=== PATIENT | female | born 1975 | race African-American/Black ===

== ENCOUNTER 2016-10-30 09:41 | Emergency (ER) | payer SELFPAY ==
[2016-10-30] MEDS ORDERED: Lorazepam 2 MG/ML VIAL ONE (10:33)
[2016-10-30] MEDS ORDERED: Fentanyl 100 MCG/2 ML VIAL ONE (10:33)
[2016-10-30] MEDS ORDERED: Ketorolac Tromethamine 30 MG/ML VIAL ONE (10:34)
[2016-10-30] MEDS ORDERED: Magnesium Citrate 300 ML BOT ONE (10:34)
--- NOTE | 2016-10-30 13:44 | ERRECORD ---
[facility] EMERGENCY RECORD HPI ABDOMINAL PAIN (23:48 AGRE) CHIEF COMPLAINTS: Patient presents for evaluation of abdominal pain. HISTORIAN: History provided by patient, HAS BEEN HAVING LLQ ABDOMINAL PAIN FOR SEVERAL MONTHS GETTING WORST. SEEN AT [facility] YESTERDAY FOR THIS PAIN AND WAS TOLD SHE HAD A LEAKING OVARIAN CYST AND GIVE AN OB-GARNETT FEEDER PHYSICIAN FOR FOLLOW UP. HOWEVER THE [facility] IS NOT HELPING HER PAIN THAT IS GETTING WORST. LOOKED ON THE INTERNET AND SAW THAT THE CYST CAN RUPTURE AND SHE IS AFRAID THAT WOULD CAUSE SO IS SCARED. LOCATION FEMALE: Symptoms are localized, most severe in the left lower quadrant. QUALITY: Pain is sharp in nature, described as shooting, described as stabbing. SEVERITY: Maximum severity of symptoms severe, Currently symptoms are severe. TIME COURSE: Gradual onset of symptoms, Symptoms are worsening. ASSOCIATED WITH FEMALE: No associated urinary tract infection signs or symptoms, No associated vomiting, No associated vaginal discharge, No associated vaginal bleeding, Denies any other complaints. RELIEVED BY: Patient's condition relieved by nothing. EXACERBATED BY: Patient's condition exacerbated by nothing. ROS (23:51 AGRE) CONSTITUTIONAL: Historian denies chills, denies fever, denies lethargy, denies malaise. EYES: Historian denies eye pain, denies eye redness. ENT: Historian denies rhinorrhea, denies sinus pain, denies sore throat. CARDIOVASCULAR: Historian denies chest pain, denies dyspnea on exertion. RESPIRATORY: Historian denies cough, denies shortness of breath. GI: Historian reports abdominal pain, denies nausea, denies vomiting. MUSCULOSKELETAL: Historian denies back pain, denies neck pain. SKIN: Negative skin review of systems, Historian denies skin changes, denies skin lesions. NEUROLOGIC: Historian denies headache, denies mental status changes. PSYCHIATRIC: Negative psychiatric review of systems, Historian denies anxiety. 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 FEMALE SURGICAL HISTORY: Surgical history of hysterectomy-PARTIAL, STILL HAS OVARIES, history of tubal ligation, myomectomy, breast tumor removed, TUMORS REMOVED FROM STOMACH. PSYCHIATRIC HISTORY: No previous psychiatric history. SOCIAL HISTORY: Patient has no smoking history, Patient denies alcohol use, Patient denies drug use. &a-1R&a+25V*p+0X*r5508P*c202B*c15G*c2P*p-0X&a-25V&a+1R Name: Carmela Avilez : 1975 F41 MedRec: [id number] AcctNum: [id number] Prepared: SunOct 31, 2016 00:05 by Interface Page 1 of 4 pMD [facility] EMERGENCY RECORD KNOWN ALLERGIES No Known Drug Allergies CURRENT MEDICATIONS [place]: TABLET : Strength - 10 mg-325 mg : ORAL Patient Dose: Oral As Needed. (09:53 MSPE) Tylenol-Codeine #3: TABLET : Strength - 300 mg-30 mg : ORAL Patient Dose: As Needed. (09:53 MSPE) Ultram: TABLET : Strength - 50 mg : ORAL Patient Dose: As Needed. (09:53 MSPE) Zofran ODT: TABLET,DISINTEGRATING : Strength - 4 mg : ORAL Patient Dose: As Needed. (09:54 MSPE) VITAL SIGNS VITAL SIGNS: BP: 127/80, Pulse: 97, Resp: 24, Temp: 98.6 (Oral), Pain: 10, O2 sat: 97 on Room Air, Time: 10/30/2016 09:48. (09:48 MSPE) BP: 112/75, Pulse: 83, Resp: 20, Pain: 3, O2 sat: 99 on Room Air, Time: 10/30/2016 11:00. (11:00 MSPE) PHYSICAL EXAM (23:51 AGRE) CONSTITUTIONAL: Patient appears, in severe pain distress, WRITHING, MOANING, RESTLESS, HYPERVENTILATING WITH PAIN, Vital Signs Reviewed, Patient afebrile, Patient appears non toxic, Patient alert and oriented to person, place and time, Nursing notes reviewed. HEAD: Head exam included findings of head atraumatic, normocephalic. EYES: Eye exam included findings of eyelids normal to inspection, Extraocular muscles intact, Conjunctiva normal, Sclera normal. ENT: Ear exam normal, Nose exam normal, Mouth exam normal. NECK: Neck exam normal, Neck exam included findings of normal range of motion, no meningeal signs. RESPIRATORY CHEST: Respiratory and chest exam normal, Respiratory exam included findings of no respiratory distress, Breath sounds clear, No wheezing, No rales, No rhonchi, Breath sounds not diminished. CARDIOVASCULAR: Cardiovascular assessment normal, Cardiovascular exam included findings of heart rate regular rate and rhythm, Heart sounds normal, normal S1, normal S2, no murmurs, no rub, no gallop. ABDOMEN FEMALE: Abdominal exam included findings of abdomen tender, to the left lower quadrant, moderate intensity, Bowel sounds normal, Liver normal, Spleen normal, no distension, no mass, no pulsatile masses, no peritoneal signs, no rigidity, no guarding, no rebound, no inguinal hernia, no femoral hernia, no umbilical hernia. &a-1R&a+25V*p+0X*[id number]*c202B*c15G*c2P*p-0X&a-25V&a+1R Name: Carmela Avilez : 1975 F41 MedRec: [id number] AcctNum: [id number] Prepared: yamile Oct 31, 2016 00:05 by Interface Page 2 of 4 pMD [facility] EMERGENCY RECORD BACK: Back exam included findings of normal inspection, range of motion normal. UPPER EXTREMITY: Upper extremity exam included findings of inspection normal, Range of motion normal. LOWER EXTREMITY: Lower extremity exam included findings of inspection normal, Range of motion normal. NEURO: Neuro exam normal, Neuro exam findings include patient oriented to person, place and time, Speech normal, Memory normal, Cranial nerves intact, no focal motor deficits. SKIN: Skin exam included findings of skin warm, dry, and normal in color. PSYCHIATRIC: Psychiatric exam normal, Psychiatric exam included findings of patient oriented to person place and time, Normal affect, OBVIOUS VERY ANXIOUS AND CRYING AND SEEMS TERRIFIED THAT SHE IS GOING TO IMMEDIATELY. MEDICATION ADMINISTRATION SUMMARY Drug Name: magnesium citrate oral solution, Dose Ordered: 300 mL, Route: Oral, Status: Given, Time: 11:02 10/30/2016, Drug Name: LORazepam injection, Dose Ordered: 1 mg, Route: IV Push, Status: Given, Time: 10:57 10/30/2016, Drug Name: fentaNYL (PF) injection, Dose Ordered: 100 mcg, Route: IV Push, Status: Given, Time: 10:50 10/30/2016, Drug Name: ketorolac injection, Dose Ordered: 30 mg, Route: IV Push, Status: Given, Time: 10:46 10/30/2016, Detailed record available in Medication Service section. DOCTOR NOTES (11:07 AGRE) RE-EVALUATION: Routine re-evaluation, after administration of analgesics, The patient's condition has improved. TEXT: DISCUSSED WITH HER THE RESULTS OF HER PREVIOUS ED WORK UP AND WHAT TO EXPECT FROM AN OVARIAN CYST AND THAT IF IT RUPTURES THAT IS USUALLY NOT FATAL. SHE THEN STARTED TO RELAX AND CALM DOWN AND SAID HER COUSIN WHO IS A NURSE TOLD HER TO GET BACK TO THE ED IMMEDIATELY BECAUSE IF IT RUPTURES SHE WILL AND ON THE INTERNET IT SAID THAT A RUPTURED OVARIAN CYST IS VERY SERIOUS. SINCE IT IS LEAKING SHE IS AFRAID THAT IT WILL RUPTURE AND KILL HER. HOWEVER AFTER EXTENSIVE CONVERSATION ABOUT OVARIAN CYST SHE STARTED RELAXING, STOPPED HYPERVENTILATING, AND STOPPED ROCKING AND WRITHING IN PAIN. SHE WAS THEN GIVEN AN INJECTION OF FENTANYL, TORADOL AND ATIVAN AND BECAME COMFORTABLE AND WENT TO SLEEP. DISCUSSED WITH HER FINDINGS ON EXAM TODAY, WHAT TO EXPECT FROM OVARIAN CYST, NEED FOR FOLLOW UP WITH MANAGER ADMINISTRATION ROYA BUT REASSURED HER THAT SHE IS NOT IN DANGER OF NEEDING IMMEDIATELY SURGERY TODAY. SHE WAS SMILING AND SAYING SHE WAS AFRAID WHEN SHE CAME IN BECAUSE THEY HAD SENT HER HOME FROM THE ED AND RELATIVES TOLD HER SHE COULD . WE DISCUSSED A PLAN FOR MANAGMENT OF THE PAIN AND THAT SHE NEEDS TO F/U WITH MANAGER ADMINISTRATION. SHE MADE APPOINTMENT FROM ED. ALSO SAYS SHE HAS BEEN CONSTIPATED FOR 1 WEEK. WE DISCUSSED THE CAUSE WHICH IS MOST LIKELY &a-1R&a+25V*p+0X*i5555F*c202B*c15G*c2P*p-0X&a-25V&a+1R Name: Carmela Avilez : 1975 F41 MedRec: [id number] AcctNum: [id number] Prepared: Pee Oct 31, 2016 00:05 by Interface Page 3 of 4 pMD [facility] EMERGENCY RECORD THE PAIN MEDS SHE IS TAKING. DISCUSSED HOW TO MANAGE HER CONSTIPATION, MANAGEMENT OF HER PAIN, NEED FOR FOLLOW UP. SHE EXPRESSED UNDERSTANDING AND AGREEMENT. PATIENT STATUS: Patient has improved since arrival to emergency department. PATIENT PLAN: The patient will be discharged. DATA REVIEWED: Old records obtained, Old records reviewed, Discussed with family. PROBLEM LIST No recorded problems DIAGNOSIS (10:50 AGRE) FINAL: PRIMARY: Pelvic Pain. PRESCRIPTION No recorded prescriptions DISPOSITION PATIENT: Disposition Type: Discharge, Disposition: *Discharge Home, Condition: Improved. (10:50 AGRE) Patient left the department. (11:51 RICKY) [place]: REJI=MD Haim, Ahmet MSPE=JONATHAN Rangel, Tiffanie &a-1R&a+25V*p+0X*[id number]*c202B*c15G*c2P*p-0X&a-25V&a+1R Name: Carmela Avilez : 1975 F41 MedRec: [id number] AcctNum: [id number] Prepared: Pee Oct 31, 2016 00:05 by Interface Page 4 of 4 pMD MTDD
--- NOTE | 2016-10-30 13:47 | PICIS ---
[facility] EMERGENCY RECORD TRIAGE (SunOct 30, 2016 09:51 MSPE) TRIAGE NOTES: LLQ pain for past one week. Sts dx'd with ovarian cyst. Seen at [facility] yesterday. Pain no better. (SunOct 30, 2016 09:51 MSPE) PATIENT: NAME: Carmela Avilez, AGE: 41, GENDER: female, : [facility] 1975, TIME OF GREET: SunOct 30, 2016 09:41, PREFERRED LANGUAGE: Fijian, ETHNICITY: Not or , ECODE BILLING MAP: [facility], SSN: [id number], Zip Code: [address], KG WEIGHT: 65.77, PHONE: , , , PERSON ID: [id number], PCP: none. (SunOct 30, 2016 09:51 MSPE) COMPLAINT: ABDOMINAL PAIN. (SunOct 30, 2016 09:51 MSPE) ADMISSION: URGENCY: 3 Urgent, ADMISSION SOURCE: Home, TRANSPORT: CAR, BED: ER *TR1. (SunOct 30, 2016 09:51 MSPE) LMP: LMP: Hysterectomy. (09:56 MSPE) TREATMENTS IN PROGRESS: Treatments given Prehospital: Pt sts took [id number] x 3 tabs at 0200. (09:56 MSPE) PROVIDERS: TRIAGE NURSE: Tiffanie Rangel RN. (SunOct 30, 2016 09:51 MSPE) VITAL SIGNS: BP 127/80, Pulse 97, Resp 24, Temp 98.6, (Oral), Pain 10, O2 Sat 97, on Room Air, Time 10/30/2016 09:48. (09:48 MSPE) PREVIOUS VISIT ALLERGIES: No Known Drug Allergies. (SunOct 30, 2016 09:51 MSPE) No Known Drug Allergies. (09:56 MSPE) KNOWN ALLERGIES No Known Drug Allergies CURRENT MEDICATIONS [place]: TABLET : Strength - 10 mg-325 mg : ORAL Patient Dose: Oral As Needed. (09:53 MSPE) Tylenol-Codeine #3: TABLET : Strength - 300 mg-30 mg : ORAL Patient Dose: As Needed. (09:53 MSPE) Ultram: TABLET : Strength - 50 mg : ORAL Patient Dose: As Needed. (09:53 MSPE) Zofran ODT: TABLET,DISINTEGRATING : Strength - 4 mg : ORAL Patient Dose: As Needed. (09:54 MSPE) VITAL SIGNS VITAL SIGNS: BP: 127/80, Pulse: 97, Resp: 24, Temp: 98.6 (Oral), Pain: 10, O2 sat: 97 on Room Air, Time: 10/30/2016 09:48. (09:48 MSPE) BP: 112/75, Pulse: 83, Resp: 20, Pain: 3, O2 sat: 99 on Room Air, Time: 10/30/2016 11:00. (11:00 MSPE) NURSING ASSESSMENT: ABDOMEN (10:00 MSPE) CONSTITUTIONAL: Patient arrives, via hospital wheelchair, History &a-1R&a+25V*p+0X*k3176B*c202B*c15G*c2P*p-0X&a-25V&a+1R Name: Carmela Avilez : 1975 F41 MedRec: [id number] AcctNum: [id number] Prepared: SunOct 31, 2016 00:05 by Interface Page 1 of 7 pMD [facility] EMERGENCY RECORD obtained from patient, Patient appears, anxious, in distress due to pain, Patient cooperative, Patient alert, Oriented to person, place and time, Skin warm, Skin dry. PAIN: miserable pain, to the left lower quadrant, Onset of pain 10/24/2016. ABDOMEN: Notes: c/o severe, constant LLQ abd pain for one week. Sts dx'd with ovarian cyst and is "leaking". Unable to control pain with her meds she rec'd yesterday at [facility] ER. LMP: Last menstrual period not applicable due to hysterectomy history. GENITOURINARY FEMALE: no associated urinary complaints. NURSING PROCEDURE: DISCHARGE NOTE (11:39 MSPE) DISCHARGE: Patient discharged to home, in a wheelchair, family driving, accompanied by //partner, Summary of Care printed/ provided, Discharge instructions given to patient, Simple or moderate discharge teaching performed, Above person(s) verbalized understanding of discharge instructions and follow-up care, Patient treated and evaluated by physician. BELONGINGS: Belongings remain with patient. NURSING PROCEDURE: IV IV SITE 1: IV therapy indicated for medication administration, IV established, to the right hand, using a 22 gauge catheter, in two attempts, IV site prepped with Chloraprep, Saline lock established, Flushed with normal saline (mls): 10. (10:45 MSPE) FOLLOW-UP SITE 1: After procedure, 2x2 dressing applied, IV discontinued, due to patient being discharged, catheter intact. (11:29 MSPE) NURSING PROCEDURE: NURSE NOTES (11:29 MSPE) NURSES NOTES: Notes: Feeling much better; awaiting to return for transport home. MEDICATION ADMINISTRATION SUMMARY Drug Name: magnesium citrate oral solution, Dose Ordered: 300 mL, Route: Oral, Status: Given, Time: 11:02 10/30/2016, Drug Name: LORazepam injection, Dose Ordered: 1 mg, Route: IV Push, Status: Given, Time: 10:57 10/30/2016, Drug Name: fentaNYL (PF) injection, Dose Ordered: 100 mcg, Route: IV Push, Status: Given, Time: 10:50 10/30/2016, Drug Name: ketorolac injection, Dose Ordered: 30 mg, Route: IV Push, Status: Given, Time: 10:46 10/30/2016, Detailed record available in Medication Service section. MEDICATION SERVICE fentaNYL (PF) injection: Order: fentaNYL (PF) injection (fentanyl citrate/preservative free) - Dose: 100 mcg : IV Push &a-1R&a+25V*p+0X*t0821Y*c202B*c15G*c2P*p-0X&a-25V&a+1R Name: Kavon Avilezmaria tvimal Gallardo : 1975 F41 MedRec: [id number] AcctNum: [id number] Prepared: SunOct 31, 2016 00:05 by Interface Page 2 of 7 pMD [facility] EMERGENCY RECORD Ordered by: Ahmet Whitmore MD Entered by: Ahmet Whitmore MD SunOct 30, 2016 10:25 Documented as given by: Tiffanie Rangel RN SunOct 30, 2016 10:50 Patient, Medication, Dose, Route and Time verified prior to administration. Amount given: 100mcg, IV SITE #1 IVP, subsequent different medication, Slowly, Awake and alert- acceptable, Catheter placement confirmed via flush prior to administration, IV site without signs or symptoms of infiltration during medication administration, No swelling during administration, No drainage during administration, IV flushed after administration, Correct patient, time, route, dose and medication confirmed prior to administration, Patient advised of actions and side-effects prior to administration, Allergies confirmed and medications reviewed prior to administration, Patient in position of comfort, Side rails up, Cart in lowest position. ketorolac injection: Order: ketorolac injection (ketorolac tromethamine) - Dose: 30 mg : IV Push Ordered by: Ahmet Whitmore MD Entered by: Ahmet Whitmore MD SunOct 30, 2016 10:25 Documented as given by: Tiffanie Rangel RN SunOct 30, 2016 10:46 Patient, Medication, Dose, Route and Time verified prior to administration. Amount given: 30mg, IV SITE #1 IVP, initial medication, Slowly, Awake and alert- acceptable, Catheter placement confirmed via flush prior to administration, IV site without signs or symptoms of infiltration during medication administration, No swelling during administration, No drainage during administration, IV flushed after administration, Correct patient, time, route, dose and medication confirmed prior to administration, Patient advised of actions and side-effects prior to administration, Allergies confirmed and medications reviewed prior to administration, Patient in position of comfort, Side rails up, Cart in lowest position. LORazepam injection: Order: LORazepam injection (lorazepam) - Dose: 1 mg : IV Push Ordered by: Ahmet Whitmore MD Entered by: Ahmet Whitmore MD SunOct 30, 2016 10:25 Documented as given by: Tiffanie Rangel RN SunOct 30, 2016 10:57 Patient, Medication, Dose, Route and Time verified prior to administration. Amount given: 1mg, IV SITE #1 IVP, subsequent different medication, Slowly, Awake and alert- acceptable, Catheter placement confirmed via flush prior to administration, IV site without signs or symptoms of infiltration during medication administration, No swelling during administration, No drainage during administration, IV flushed after administration, Correct patient, time, route, dose and medication confirmed prior to administration, Patient advised of actions and side-effects prior to administration, Allergies confirmed and medications reviewed prior to administration, Patient in position of comfort, Side rails up, Cart in lowest position. magnesium citrate oral solution: Order: magnesium citrate oral &a-1R&a+25V*p+0X*g1844T*c202B*c15G*c2P*p-0X&a-25V&a+1R Name: Carmela Avilez : 1975 F41 MedRec: [id number] AcctNum: [id number] Prepared: SunOct 31, 2016 00:05 by Interface Page 3 of 7 pMD [facility] EMERGENCY RECORD solution (magnesium citrate) - Dose: 300 mL : Oral Ordered by: Ahmet Whitmore MD Entered by: Ahmet Whitmore MD SunOct 30, 2016 10:23 Documented as given by: Tiffanie Rangel RN SunOct 30, 2016 11:02 Patient, Medication, Dose, Route and Time verified prior to administration. Amount given: 300ml, Site: Medication administered P.O., Patient appears Awake and alert- acceptable, Correct patient, time, route, dose and medication confirmed prior to administration, Patient advised of actions and side-effects prior to administration, Allergies confirmed and medications reviewed prior to administration, Patient in position of comfort, Side rails up, Cart in lowest position. HPI ABDOMINAL PAIN (23:48 AGRE) CHIEF COMPLAINTS: Patient presents for evaluation of abdominal pain. HISTORIAN: History provided by patient, HAS BEEN HAVING LLQ ABDOMINAL PAIN FOR SEVERAL MONTHS GETTING WORST. SEEN AT [facility] YESTERDAY FOR THIS PAIN AND WAS TOLD SHE HAD A LEAKING OVARIAN CYST AND GIVE AN OB-FREIGHT CAR INSPECTOR PHYSICIAN FOR FOLLOW UP. HOWEVER THE NORCO IS NOT HELPING HER PAIN THAT IS GETTING WORST. LOOKED ON THE INTERNET AND SAW THAT THE CYST CAN RUPTURE AND SHE IS AFRAID THAT WOULD CAUSE SO IS SCARED. LOCATION FEMALE: Symptoms are localized, most severe in the left lower quadrant. QUALITY: Pain is sharp in nature, described as shooting, described as stabbing. SEVERITY: Maximum severity of symptoms severe, Currently symptoms are severe. TIME COURSE: Gradual onset of symptoms, Symptoms are worsening. ASSOCIATED WITH FEMALE: No associated urinary tract infection signs or symptoms, No associated vomiting, No associated vaginal discharge, No associated vaginal bleeding, Denies any other complaints. RELIEVED BY: Patient's condition relieved by nothing. EXACERBATED BY: Patient's condition exacerbated by nothing. ROS (23:51 AGRE) CONSTITUTIONAL: Historian denies chills, denies fever, denies lethargy, denies malaise. EYES: Historian denies eye pain, denies eye redness. ENT: Historian denies rhinorrhea, denies sinus pain, denies sore throat. CARDIOVASCULAR: Historian denies chest pain, denies dyspnea on exertion. RESPIRATORY: Historian denies cough, denies shortness of breath. GI: Historian reports abdominal pain, denies nausea, denies vomiting. MUSCULOSKELETAL: Historian denies back pain, denies neck pain. SKIN: Negative skin review of systems, Historian denies skin changes, denies skin lesions. &a-1R&a+25V*p+0X*k3730C*c202B*c15G*c2P*p-0X&a-25V&a+1R Name: Cramela Avilze : 1975 F41 MedRec: [id number] AcctNum: [id number] Prepared: SunOct 31, 2016 00:05 by Interface Page 4 of 7 pMD [facility] EMERGENCY RECORD NEUROLOGIC: Historian denies headache, denies mental status changes. PSYCHIATRIC: Negative psychiatric review of systems, Historian denies anxiety. 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 FEMALE SURGICAL HISTORY: Surgical history of hysterectomy-PARTIAL, STILL HAS OVARIES, history of tubal ligation, myomectomy, breast tumor removed, TUMORS REMOVED FROM STOMACH. PSYCHIATRIC HISTORY: No previous psychiatric history. SOCIAL HISTORY: Patient has no smoking history, Patient denies alcohol use, Patient denies drug use. PHYSICAL EXAM (23:51 AGRE) CONSTITUTIONAL: Patient appears, in severe pain distress, WRITHING, MOANING, RESTLESS, HYPERVENTILATING WITH PAIN, Vital Signs Reviewed, Patient afebrile, Patient appears non toxic, Patient alert and oriented to person, place and time, Nursing notes reviewed. HEAD: Head exam included findings of head atraumatic, normocephalic. EYES: Eye exam included findings of eyelids normal to inspection, Extraocular muscles intact, Conjunctiva normal, Sclera normal. ENT: Ear exam normal, Nose exam normal, Mouth exam normal. NECK: Neck exam normal, Neck exam included findings of normal range of motion, no meningeal signs. RESPIRATORY CHEST: Respiratory and chest exam normal, Respiratory exam included findings of no respiratory distress, Breath sounds clear, No wheezing, No rales, No rhonchi, Breath sounds not diminished. CARDIOVASCULAR: Cardiovascular assessment normal, Cardiovascular exam included findings of heart rate regular rate and rhythm, Heart sounds normal, normal S1, normal S2, no murmurs, no rub, no gallop. ABDOMEN FEMALE: Abdominal exam included findings of abdomen tender, to the left lower quadrant, moderate intensity, Bowel sounds normal, Liver normal, Spleen normal, no distension, no mass, no pulsatile masses, no peritoneal signs, no rigidity, no guarding, no rebound, no inguinal hernia, no femoral hernia, no umbilical hernia. BACK: Back exam included findings of normal inspection, range of motion normal. UPPER EXTREMITY: Upper extremity exam included findings of inspection normal, Range of motion normal. LOWER EXTREMITY: Lower extremity exam included findings of inspection normal, Range of motion normal. NEURO: Neuro exam normal, Neuro exam findings include patient oriented to person, place and time, Speech normal, Memory normal, Cranial nerves intact, no focal motor deficits. &a-1R&a+25V*p+0X*r2416S*c202B*c15G*c2P*p-0X&a-25V&a+1R Name: Carmela Avilez : 1975 F41 MedRec: [id number] AcctNum: [id number] Prepared: Pee Oct 31, 2016 00:05 by Interface Page 5 of 7 pMD [facility] EMERGENCY RECORD SKIN: Skin exam included findings of skin warm, dry, and normal in color. PSYCHIATRIC: Psychiatric exam normal, Psychiatric exam included findings of patient oriented to person place and time, Normal affect, OBVIOUS VERY ANXIOUS AND CRYING AND SEEMS TERRIFIED THAT SHE IS GOING TO IMMEDIATELY. EVENTS TRANSFER: Triage to Emergency Emergency Room *TR1. (09:51 MSPE) Removed from Emergency Emergency Room *TR1. (11:51 MSPE) DOCTOR NOTES (11:07 AGRE) RE-EVALUATION: Routine re-evaluation, after administration of analgesics, The patient's condition has improved. TEXT: DISCUSSED WITH HER THE RESULTS OF HER PREVIOUS ED WORK UP AND WHAT TO EXPECT FROM AN OVARIAN CYST AND THAT IF IT RUPTURES THAT IS USUALLY NOT FATAL. SHE THEN STARTED TO RELAX AND CALM DOWN AND SAID HER COUSIN WHO IS A NURSE TOLD HER TO GET BACK TO THE ED IMMEDIATELY BECAUSE IF IT RUPTURES SHE WILL AND ON THE INTERNET IT SAID THAT A RUPTURED OVARIAN CYST IS VERY SERIOUS. SINCE IT IS LEAKING SHE IS AFRAID THAT IT WILL RUPTURE AND KILL HER. HOWEVER AFTER EXTENSIVE CONVERSATION ABOUT OVARIAN CYST SHE STARTED RELAXING, STOPPED HYPERVENTILATING, AND STOPPED ROCKING AND WRITHING IN PAIN. SHE WAS THEN GIVEN AN INJECTION OF FENTANYL, TORADOL AND ATIVAN AND BECAME COMFORTABLE AND WENT TO SLEEP. DISCUSSED WITH HER FINDINGS ON EXAM TODAY, WHAT TO EXPECT FROM OVARIAN CYST, NEED FOR FOLLOW UP WITH AUTHOR'S AGENT ROYA BUT REASSURED HER THAT SHE IS NOT IN DANGER OF NEEDING IMMEDIATELY SURGERY TODAY. SHE WAS SMILING AND SAYING SHE WAS AFRAID WHEN SHE CAME IN BECAUSE THEY HAD SENT HER HOME FROM THE ED AND RELATIVES TOLD HER SHE COULD . WE DISCUSSED A PLAN FOR MANAGMENT OF THE PAIN AND THAT SHE NEEDS TO F/U WITH AUTHOR'S AGENT. SHE MADE APPOINTMENT FROM ED. ALSO SAYS SHE HAS BEEN CONSTIPATED FOR 1 WEEK. WE DISCUSSED THE CAUSE WHICH IS MOST LIKELY THE PAIN MEDS SHE IS TAKING. DISCUSSED HOW TO MANAGE HER CONSTIPATION, MANAGEMENT OF HER PAIN, NEED FOR FOLLOW UP. SHE EXPRESSED UNDERSTANDING AND AGREEMENT. PATIENT STATUS: Patient has improved since arrival to emergency department. PATIENT PLAN: The patient will be discharged. DATA REVIEWED: Old records obtained, Old records reviewed, Discussed with family. PROBLEM LIST No recorded problems DIAGNOSIS (10:50 AGRE) FINAL: PRIMARY: Pelvic Pain. DISPOSITION PATIENT: Disposition Type: Discharge, Disposition: *Discharge &a-1R&a+25V*p+0X*s6185X*c202B*c15G*c2P*p-0X&a-25V&a+1R Name: Carmela Avilez : 1975 F41 MedRec: [id number] AcctNum: [id number] Prepared: Pee Oct 31, 2016 00:05 by Interface Page 6 of 7 pMD [facility] EMERGENCY RECORD Home, Condition: Improved. (10:50 AGRE) Patient left the department. (11:51 MSPE) INSTRUCTION (10:52 AGRE) DISCHARGE: OVARIAN CYST, CONSTIPATION (ADULT). SPECIAL: TAKE THE NORCO EVERY 6 HOURS AND THE ULTRAM EVERY 4 - 6 HOURS FOR PAIN. ALSO TAKE MOTRIN 600 MG EVERY 6 HOURS FOR INFLAMMATION AND PAIN. START TAKING METAMUCIL FOR YOUR CONSTIPATION AND MAKE SURE TO DRINK AT LEAST 64 OUNCES OF WATER PER DAY. FOLLOW UP WITH AN OB-FREIGHT CAR INSPECTOR PHYSICIAN TODAY TO ARRANGE FOR FURTHER EVALUATION AND MANAGEMENT OF YOUR OVARIAN CYST. PRESCRIPTION No recorded prescriptions IMAGING (14:07 RICKY) *DISCHARGE INSTRUCTIONS RECEIPT: Image captured from scanner. *SUPPLY CHARGE SHEET: Image captured from scanner. ADMIN (SunOct 31, 2016 00:01 REJI) DIGITAL SIGNATURE: MD Whitmore Andrea. [place]: AGRE=MD Whitmore Andrea MSPE=JONATHAN Rangel, Tiffanie &a-1R&a+25V*p+0X*n8490W*c202B*c15G*c2P*p-0X&a-25V&a+1R Name: Carmela Avilez : 1975 F41 MedRec: [id number] AcctNum: [id number] Prepared: SunOct 31, 2016 00:05 by Interface Page 7 of 7 pMD [facility]TD[facility]
== END 2016-10-30 11:39 | disposition home or self-care (01) ==
LOC: NAV ERS 09:41
DX: R10.2 Pelvic and perineal pain (principal)
CPT/HCPCS: 96374; 96375; J1885; J2060; J3010

== ENCOUNTER 2017-07-18 08:14 | Emergency (ER) | payer BC ==
[2017-07-18] MEDS ORDERED: Sodium Chloride 0.9% 1,000 ML ONE (08:43)
[2017-07-18] MEDS ORDERED: Ondansetron HCl/PF 4 MG/2 ML Vial ONE (09:06)
[2017-07-18] MEDS ORDERED: Pantoprazole 40 MG VIAL ONE (09:06)
[2017-07-18 09:25] LABS: #Basophils 0.1 thou/uL (0.0-0.2); #Eosinphils 0.1 thou/uL (0.0-0.7); #Lymphocytes 2.7 thou/uL (1.20-3.40); #Monocytes 0.6 thou/uL (0.11-0.59); #Neutrophils 2.2 thou/uL (1.40-6.50); %Basophils 1.9 % (0.0-1.0); %Eosinophils 1.1 % (0.0-10.0); %Lymphocytes 47.4 % (21.0-51.0); %Monocytes 10.6 % (0.0-10.0); %Neutrophils 39.1 % (42.0-75.0); Hemoglobin 13.3 g/dL (12.0-16.0); Mean Corpuscular HGB CONC 31.7 g/dL (32.0-36.0); Mean Corpuscular Hemoglobin 30.9 pg (27.0-31.0); Mean Corpuscular Volume 97.5 fl (81.0-99.0); Mean Platelet Volume 6.3 fL (7.4-10.4); Platelet Count 295 thou/uL (130-400); Red Blood Cell (RBC) Count 4.29 mill/uL (4.20-5.40); White Blood Cell (WBC) Count 5.7 thou/uL (4.8-10.8)
[2017-07-18 09:37] LABS: BHCG - Serum Negative (NEGATIVE); Pregs Control Bar Appear? YES (CONTROL BAR)
[2017-07-18 09:39] LABS: CKMB 1.2 ng/mL (0-6.6); Troponin I Less than 0.010 ng/mL (< 0.028)
[2017-07-18 09:41] LABS: ALT (SGPT) 12 U/L (8-55); AST (SGOT) 12 U/L (5-34); Albumin 4.2 g/dL (3.5-5.0); Alkaline Phosphatase 63 U/L (40-150); Anion Gap 16 mmol/L (10-20); BUN (Urea Nitrogen) 15 mg/dL (7.0-18.7); Bilirubin, Total 0.4 mg/dL (0.2-1.2); CK (CPK) 119 U/L (29-168); Calc. Creatinine Clearance 0 mL/min (70-130); Calcium 9.8 mg/dL (7.8-10.44); Carbon Dioxide 20 mmol/L (22-29); Chloride 103 mmol/L (98-107); Estimated GFR-MDRD Greater than 90; Glucose 102 mg/dL (70-105); Lipase 18 U/L (8-78); Potassium 3.6 mmol/L (3.5-5.1); Protein, Total 7.2 g/dL (6.0-8.3); Sodium 135 mmol/L (136-145)
[2017-07-18 10:29] LABS: Bilirubin Small (Negative); Blood, Urine Small (Negative); Clarity Cloudy (Clear); Glucose, Urine (Dipstick) Negative (Negative); Leukocyte Negative (Negative); Nitrite Negative (Negative); Protein, Urine (Dipstick) 30 mg/dL (Neg-Trace); Specific Gravity, Urine 1.025 (1.005-1.030)
--- NOTE | 2017-07-18 10:33 | RAD ---
ABDOMEN 2 VIEWS WITH 1 VIEW CHEST XRAY: HISTORY: Epigastric pain at site of abdominal surgery. Pain. COMPARISON: None. FINDINGS: No dilated loops of large or small bowel. Lungs are clear. No pneumothorax or effusion. Cardiac silhouette and mediastinal contours within n ormal limits. No acute osseous abnormality. IMPRESSION: No acute abnormality in the abdomen or pelvis. POS: [facility]
[2017-07-18 10:35] LABS: Bacteria/HPF Rare-Few HPF (None Seen); Crystals/HPF 3+ AMORPH PHOS HPF (Negative); Squamous Epithelial 0-3 HPF (0-3); WBC/HPF 0-3 HPF (0-3)
== END 2017-07-18 11:51 | disposition home or self-care (01) ==
LOC: NAV ERS 08:14
DX: R19.7 Diarrhea, unspecified (principal); R10.13 Epigastric pain; Z79.899 Other long term (current) drug therapy; Z79.891 Long term (current) use of opiate analgesic
CPT/HCPCS: 36415; 74022; 80053; 81003; 81015; 82150; 82550; 82553; 83690; 84484; 84703; 85025; 96361; 96374; 96375; C9113; J2270; J2405; J7050

== ENCOUNTER 2018-03-23 12:49 | Emergency (ER) | payer SELFPAY ==
[2018-03-23] MEDS ORDERED: Ketorolac Tromethamine 30 MG/ML VIAL ONE (13:22)
[2018-03-23] MEDS ORDERED: Ondansetron HCl/PF 4 MG/2 ML Vial ONE (13:44)
[2018-03-23 13:56] LABS: #Basophils 0.1 thou/uL (0.0-0.2); #Lymphocytes 1.5 thou/uL (1.20-3.40); #Monocytes 0.4 thou/uL (0.11-0.59); #Neutrophils 5.1 thou/uL (1.40-6.50); %Basophils 2.1 % (0.0-1.0); %Lymphocytes 20.6 % (21.0-51.0); %Monocytes 5.4 % (0.0-10.0); %Neutrophils 71.9 % (42.0-75.0); Hemoglobin 12.1 g/dL (12.0-16.0); Mean Corpuscular HGB CONC 32.6 g/dL (32.0-36.0); Mean Corpuscular Hemoglobin 29.5 pg (27.0-31.0); Mean Corpuscular Volume 90.5 fL (78.0-98.0); Mean Platelet Volume 5.8 fL (7.4-10.4); Platelet Count 379 thou/uL (130-400); RBC Distribution Width 12.6 % (11.5-14.5); Red Blood Cell (RBC) Count 4.08 mill/uL (4.20-5.40); White Blood Cell (WBC) Count 7.1 thou/uL (4.8-10.8)
[2018-03-23 14:06] LABS: ALT (SGPT) 100 U/L (8-55); AST (SGOT) 40 U/L (5-34); Albumin 4.1 g/dL (3.5-5.0); Alkaline Phosphatase 55 U/L (40-150); Anion Gap 18 mmol/L (10-20); BUN (Urea Nitrogen) 13 mg/dL (7.0-18.7); Bilirubin, Total 0.5 mg/dL (0.2-1.2); Calc. Creatinine Clearance 0 mL/min (70-130); Calcium 9.3 mg/dL (7.8-10.44); Carbon Dioxide 20 mmol/L (22-29); Chloride 99 mmol/L (98-107); Estimated GFR-MDRD Greater than 90; Globulin 2.9 g/dL (2.4-3.5); Glucose 110 mg/dL (70-105); Lipase 21 U/L (8-78); Sodium 134 mmol/L (136-145)
[2018-03-23 14:06] LABS: Bilirubin Small (Negative); Blood, Urine Trace (Negative); Glucose, Urine (Dipstick) Negative (Negative); Leukocyte Negative (Negative); Nitrite Negative (Negative); Protein, Urine (Dipstick) 100 mg/dL (Neg-Trace); Specific Gravity, Urine 1.025 (1.005-1.030); Urobilinogen 0.2 mg/dL (0.2-1.0)
[2018-03-23 14:10] LABS: Clarity SL HAZY (Clear)
[2018-03-23 14:16] LABS: Squamous Epithelial 0-3 HPF (0-3)
[2018-03-23 14:17] LABS: Bacteria/HPF Rare-Few HPF (None Seen)
[2018-03-23] MEDS ORDERED: Potassium Chloride 20 MEQ TAB ONE (15:18)
== END 2018-03-23 15:25 | disposition short-term general hospital (02) ==
LOC: NAV ERS 12:49
DX: R10.32 Left lower quadrant pain (principal); N83.209 Unspecified ovarian cyst, unspecified side; F17.210 Nicotine dependence, cigarettes, uncomplicated
CPT/HCPCS: 80053; 81003; 81015; 83690; 85025; 96361; 96374; 96375; J1885; J2405

== ENCOUNTER 2018-04-13 20:41 | Emergency (ER) | payer SELFPAY ==
[2018-04-13] MEDS ORDERED: Lidocaine 1% 20 ML MDV ONE (21:14)
[2018-04-13] MEDS ORDERED: Ketorolac Tromethamine 60 MG/2 ML VIAL ONE (21:14)
[2018-04-13] MEDS ORDERED: cefTRIAXone\\ROCEPHIN 1 GM VIAL ONE (21:14)
[2018-04-13] MEDS ORDERED: traMADol HCl 50 MG TAB ONE (21:14)
== END 2018-04-13 21:47 | disposition home or self-care (01) ==
LOC: NAV ERS 20:41
DX: K02.9 Dental caries, unspecified (principal); F17.210 Nicotine dependence, cigarettes, uncomplicated
CPT/HCPCS: 96372; J0696; J1885; J2001

== ENCOUNTER 2018-08-12 10:18 | Emergency (ER) | payer BC, SELFPAY ==
[~2018-08-12 10:18] MED LIST: Iopamidol 370 76% 100 ML VIAL ONE; Sucralfate 1 GM TAB ONE
[2018-08-12] MEDS ORDERED: Ondansetron ODT 4 MG TAB ONE (10:43)
[2018-08-12] MEDS ORDERED: Mag-Al Plus 1200 MG/1200 MG/120 MG/30 ML UDCUP ONE (10:46)
[2018-08-12] MEDS ORDERED: Lidocaine Viscous Sol 2% 15 ml UD Cup ONE (10:46)
[2018-08-12] MEDS ORDERED: Sodium Chloride 0.9% 1,000 ML ONE (10:51)
[2018-08-12 11:30] LABS: #Basophils 0.3 thou/uL (0.0-0.2); #Lymphocytes 1.3 thou/uL (1.20-3.40); #Monocytes 0.6 thou/uL (0.11-0.59); #Neutrophils 10.5 thou/uL (1.40-6.50); %Basophils 2.6 % (0.0-1.0); %Lymphocytes 10.5 % (21.0-51.0); %Monocytes 4.7 % (0.0-10.0); %Neutrophils 82.2 % (42.0-75.0); Mean Corpuscular HGB CONC 33.5 g/dL (32.0-36.0); Mean Corpuscular Hemoglobin 30.6 pg (27.0-31.0); Mean Corpuscular Volume 91.3 fL (78.0-98.0); Mean Platelet Volume 6.2 fL (7.4-10.4); Platelet Count 363 thou/uL (130-400); RBC Distribution Width 13.2 % (11.5-14.5); Red Blood Cell (RBC) Count 3.92 mill/uL (4.20-5.40); White Blood Cell (WBC) Count 12.7 thou/uL (4.8-10.8)
[2018-08-12] MEDS ORDERED: Pantoprazole 40 MG VIAL ONE (11:36)
[2018-08-12 11:44] LABS: ALT (SGPT) 27 U/L (8-55); AST (SGOT) 29 U/L (5-34); Albumin 4.6 g/dL (3.5-5.0); Alcohol Less than 10 mg/dL (Less than 10); Alkaline Phosphatase 68 U/L (40-150); Anion Gap 19 mmol/L (10-20); BUN (Urea Nitrogen) 17 mg/dL (7.0-18.7); Bilirubin, Total 0.4 mg/dL (0.2-1.2); CK (CPK) 262 U/L (29-168); Calc. Creatinine Clearance 0 mL/min (70-130); Calcium 10.4 mg/dL (7.8-10.44); Carbon Dioxide 20 mmol/L (22-29); Chloride 102 mmol/L (98-107); Estimated GFR-MDRD Greater than 90; Globulin 3.4 g/dL (2.4-3.5); Glucose 102 mg/dL (70-105); Lipase 7 U/L (8-78); Potassium 3.4 mmol/L (3.5-5.1); Sodium 138 mmol/L (136-145)
[2018-08-12 12:27] LABS: Bilirubin Negative (Negative); Blood, Urine Small (Negative); Clarity Clear (Clear); Glucose, Urine (Dipstick) Negative (Negative); Leukocyte Negative (Negative); Nitrite Negative (Negative); Protein, Urine (Dipstick) Trace mg/dL (Neg-Trace); Specific Gravity, Urine 1.025 (1.005-1.030); Urobilinogen 0.2 mg/dL (0.2-1.0)
[2018-08-12] MEDS ORDERED: Ondansetron PF 4 MG/2 ML Vial ONE (12:32)
[2018-08-12 12:33] LABS: Bacteria/HPF Rare-Few HPF (None Seen); Other Microscopic Description NO; Squamous Epithelial 0-3 HPF (0-3); WBC/HPF 0-3 HPF (0-3)
[2018-08-12] MEDS ORDERED: Fentanyl 100 MCG/2 ML VIAL ONE (13:51)
--- NOTE | 2018-08-12 14:16 | RAD ---
ABDOMEN TWO VIEWS: CHEST ONE VIEW: HISTORY: Nausea and vomiting. COMPARISON: Radiograph from 07/18/2017. FINDINGS: The lungs are clear. No pneumothorax or effusion. The cardiac silhouette and mediastinal contour ar e within normal limits. On the upright exam, there is no free air in the hemidiaphragms. No dilated loops of large or small bowel. Phleboliths in the pelvis. IMPRESSION: No acute intrathoracic or intraabdominal abnormality. POS: [facility]
--- NOTE | 2018-08-12 14:25 | CT ---
CT ABDOMEN AND PELVIS WITH CONTRAST: Date: 08/12/18 HISTORY: Left upper quadrant pain. COMPARISON: CT dated 03/23/18. FINDINGS: The lung bases are clear. No pericardial effusion. The continues to be abnormal hyperenhancement in submucosal edema of the gastric antrum, as well as t he pylorus. The liver, spleen, kidneys, and adrenal glands are unremarkable. The pancreas is unremark able. There are no dilated loops of large or small bowel. Moderate stool burden throughout the sigmoid colo n. No free intraperitoneal gas or fluid. The aortoiliac contour is nonaneurysmal. No retroperitoneal sean nopathy. There is mild coxa magna deformity of both femorals heads, worse on the right, likely sequelae of armaan tabular undercoverage of the femoral heads. IMPRESSION: Hyperemia and thickening of the gastric fundus and pylorus suggesting gastritis. No other acute abnor mality in the abdomen or pelvis. POS: [facility]
== END 2018-08-12 14:20 | disposition short-term general hospital (02) ==
LOC: NAV ERS 10:18
DX: R10.10 Upper abdominal pain, unspecified (principal); K56.609 Unspecified intestinal obstruction, unspecified as to partial versus complete obstruction; F17.210 Nicotine dependence, cigarettes, uncomplicated; Z79.899 Other long term (current) drug therapy
CPT/HCPCS: 74022; 74177; 80053; 80307; 81003; 81015; 82550; 83605; 83690; 85025; 96361; 96374; 96375; 96376; C9113; J2270; J2405; J3010; J7050; Q0162

== ENCOUNTER 2019-04-28 13:14 | Emergency (ER) | payer OTHER, SELFPAY ==
[2019-04-28] MEDS ORDERED: Ondansetron PF 4 MG/2 ML Vial ONE (13:41)
[2019-04-28 14:04] LABS: Bilirubin Negative (Negative); Blood, Urine Trace (Negative); Clarity Clear (Clear); Glucose, Urine (Dipstick) Negative (Negative); Leukocyte Negative (Negative); Nitrite Negative (Negative); Protein, Urine (Dipstick) Negative (Neg-Trace); Urobilinogen 0.2 mg/dL (Less than 2)
[2019-04-28 14:06] LABS: Hemoglobin 12.4 g/dL (12.0-16.0); Mean Corpuscular HGB CONC 32.8 g/dL (32.0-36.0); Mean Corpuscular Hemoglobin 30.8 pg (27.0-31.0); Mean Corpuscular Volume 93.9 fL (78.0-98.0); Mean Platelet Volume 6.8 fL (7.4-10.4); Platelet Count 217 thou/uL (130-400); RBC Distribution Width 11.8 % (11.5-14.5); Red Blood Cell (RBC) Count 4.03 mill/uL (4.20-5.40); White Blood Cell (WBC) Count 4.7 thou/uL (4.8-10.8)
[2019-04-28 14:15] LABS: Bacteria/HPF None Seen HPF (None Seen); WBC/HPF 0-3 HPF (0-3)
[2019-04-28 14:23] LABS: ALT (SGPT) 12 U/L (8-55); AST (SGOT) 15 U/L (5-34); Albumin 3.8 g/dL (3.5-5.0); Alkaline Phosphatase 62 U/L (40-150); Anion Gap 12 mmol/L (10-20); BUN (Urea Nitrogen) 12 mg/dL (7.0-18.7); Bilirubin, Total 0.6 mg/dL (0.2-1.2); Calc. Creatinine Clearance 0 mL/min (70-130); Calcium 9.2 mg/dL (7.8-10.44); Carbon Dioxide 24 mmol/L (22-29); Chloride 107 mmol/L (98-107); Eosinophils 2 % (0-10); Estimated GFR-MDRD Greater than 90; Globulin 2.7 g/dL (2.4-3.5); Glucose 87 mg/dL (70-105); Lipase 11 U/L (8-78); Lymphocytes 71 % (21-51); MDiff Complete? YES; Monocytes 1 % (0-10); Neutrophil 26 % (42-75); Platelet Morphology Comment Appears Adequate; Potassium 3.6 mmol/L (3.5-5.1); Protein, Total 6.5 g/dL (6.0-8.3); RBC Morphology Normal; Sodium 139 mmol/L (136-145)
== END 2019-04-28 14:40 | disposition home or self-care (01) ==
LOC: NAV ERS 13:14
DX: R11.2 Nausea with vomiting, unspecified (principal); R10.10 Upper abdominal pain, unspecified; R10.816 Epigastric abdominal tenderness; F17.210 Nicotine dependence, cigarettes, uncomplicated
CPT/HCPCS: 80053; 81003; 81015; 83690; 85025; 93005; 96374; J2405

== ENCOUNTER 2020-01-24 07:42 | Emergency (ER) | payer OTHER, SELFPAY ==
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
--- NOTE | 2020-01-24 08:57 | CT ---
CT BRAIN PERFORMED WITHOUT CONTRAST ENHANCEMENT: History: Head injury. FINDINGS: The ventricular and cisternal system is within normal limits. There are no signs of intracerebral hem orrhage or extraaxial fluid collections. Mastoid air cells and visualized sinuses appear clear. IMPRESSION: No acute intracranial abnormalities. POS: CHARLE[facility]
== END 2020-01-24 09:14 ==
LOC: NAV ERS 07:42
DX: Z04.1 Encounter for examination and observation following transport accident (principal); F32.9 Major depressive disorder, single episode, unspecified; F90.9 Attention-deficit hyperactivity disorder, unspecified type; F17.210 Nicotine dependence, cigarettes, uncomplicated; V89.2XXA Person injured in unspecified motor-vehicle accident, traffic, initial encounter
CPT/HCPCS: 70450; 72125

== ENCOUNTER 2020-02-01 07:07 | Emergency (ER) | payer OTHER, SELFPAY ==
[2020-02-01] MEDS ORDERED: Iopamidol 370 76% 100 ML VIAL ONE (09:00)
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
== END 2020-02-01 09:37 | disposition home or self-care (01) ==
LOC: NAV ERS 07:07
DX: R10.84 Generalized abdominal pain (principal); R19.7 Diarrhea, unspecified; R50.9 Fever, unspecified; R63.0 Anorexia; R11.0 Nausea; F32.9 Major depressive disorder, single episode, unspecified; K56.609 Unspecified intestinal obstruction, unspecified as to partial versus complete obstruction; F17.210 Nicotine dependence, cigarettes, uncomplicated; F43.10 Post-traumatic stress disorder, unspecified; Z79.891 Long term (current) use of opiate analgesic; Z79.899 Other long term (current) drug therapy; V89.2XXA Person injured in unspecified motor-vehicle accident, traffic, initial encounter
CPT/HCPCS: 71260; 74177; Q9967

== ENCOUNTER 2020-05-05 11:26 | Emergency (ER) | payer OTHER, SELFPAY ==
--- NOTE | 2020-05-05 12:25 | RAD ---
EXAM: 3 views of the right ankle HISTORY: Right ankle pain COMPARISON: None FINDINGS: 3 views of the right ankle shows no evidence of acute fracture or dislocation. No soft tiss ue swelling is seen. No degenerative changes are present. IMPRESSION: No evidence of acute osseous abnormality.
== END 2020-05-05 12:50 | disposition home or self-care (01) ==
LOC: NAV ERS 11:26
DX: S93.431A Sprain of tibiofibular ligament of right ankle, initial encounter (principal); F32.9 Major depressive disorder, single episode, unspecified; F41.9 Anxiety disorder, unspecified; Z87.891 Personal history of nicotine dependence; F43.10 Post-traumatic stress disorder, unspecified; Z79.899 Other long term (current) drug therapy; X50.1XXA Overexertion from prolonged static or awkward postures, initial encounter

== ENCOUNTER 2022-08-03 10:44 | Emergency (ER) | payer BC, OTHER ==
[2022-08-03 11:54] LABS: Bilirubin Negative (Negative); Blood, Urine Moderate (Negative); Clarity Clear (Clear); Glucose, Urine (Dipstick) Negative (Negative); Ketone, Urine Negative (Negative); Leukocyte Negative (Negative); Nitrite Negative (Negative); Protein, Urine (Dipstick) Negative (Neg-Trace); Urobilinogen 0.2 mg/dL (Less than 2); pH, Urine 5.5 (5.0-9.0)
[2022-08-03 11:55] LABS: Specific Gravity, Urine 1.026 (1.002-1.036)
[2022-08-03] MEDS ORDERED: Ketorolac Tromethamine 30 MG/ML VIAL ONE (11:57)
[2022-08-03] MEDS ORDERED: Lidocaine Viscous Sol 2% 15 ml UD Cup ONE (11:57)
[2022-08-03] MEDS ORDERED: Dicyclomine 20 MG/2 ML VIAL ONE (11:57)
[2022-08-03] MEDS ORDERED: Mag-Al Plus 1200 MG/1200 MG/120 MG/30 ML UDCUP ONE (11:57)
[2022-08-03 12:10] LABS: Squamous Epithelial 0-3 HPF (0-3); WBC/HPF 0-3 HPF (0-3)
[2022-08-03 12:11] LABS: Bacteria/HPF Rare-Few HPF (None Seen)
[2022-08-03 12:19] LABS: Pregnancy Test - Urine (BHCG) Negative (Negative); Pregu Control Background? CLEAR/WHITE (CLR/WHITE); Pregu Control Bar Appear? YES (CONTROL BAR); Specific Gravity 1.026 (1.002-1.036)
[2022-08-03 12:43] LABS: Hemoglobin 13.7 g/dL (12.0-16.0); Mean Corpuscular HGB CONC 32.6 g/dL (32.0-36.0); Mean Corpuscular Hemoglobin 32.5 pg (27.0-31.0); Mean Corpuscular Volume 99.9 fl (78.0-98.0); Red Blood Cell (RBC) Count 4.21 mill/uL (4.20-5.40); White Blood Cell (WBC) Count 10.2 thou/uL (4.8-10.8)
[2022-08-03 12:44] LABS: #Basophils 0.1 thou/uL (0.0-0.2); #Lymphocytes 2.5 thou/uL (1.20-3.40); #Monocytes 0.7 thou/uL (0.11-0.59); #Neutrophils 6.9 thou/uL (1.40-6.50); %Basophils 1.2 % (0.0-1.0); %Eosinophils 0.2 % (0.0-10.0); %Lymphocytes 24.6 % (21.0-51.0); %Monocytes 6.7 % (0.0-10.0); %Neutrophils 67.3 % (42.0-75.0); Mean Platelet Volume 7.1 fL (7.4-10.4); Platelet Count 307 thou/uL (130-400); RBC Distribution Width 11.4 % (11.5-14.5)
[2022-08-03 12:56] LABS: ALT (SGPT) 20 U/L (8-55); AST (SGOT) 19 U/L (5-34); Albumin 4.1 g/dL (3.5-5.0); Alkaline Phosphatase 67 U/L (40-110); Anion Gap 17 mmol/L (10-20); BUN (Urea Nitrogen) 16 mg/dL (7.0-18.7); Bilirubin, Total 0.6 mg/dL (0.2-1.2); Calc. Creatinine Clearance 0 mL/min (70-130); Calcium 9.5 mg/dL (7.8-10.44); Carbon Dioxide 18 mmol/L (22-29); Chloride 110 mmol/L (98-107); Estimated GFR 100; Globulin 2.6 g/dL (2.4-3.5); Glucose 143 mg/dL (70-105); Lipase 21 U/L (8-78); Potassium 3.7 mmol/L (3.5-5.1); Protein, Total 6.7 g/dL (6.0-8.3); Sodium 141 mmol/L (136-145)
[2022-08-03] MEDS ORDERED: Morphine 4 MG/ML VIAL ONE (13:24)
[2022-08-03] MEDS ORDERED: Morphine 2 MG/ML VIAL ONE (13:24)
[2022-08-03] MEDS ORDERED: Ondansetron PF 4 MG/2 ML Vial ONE (13:24)
[2022-08-03] MEDS ORDERED: Pantoprazole 40 MG VIAL ONE (13:24)
[2022-08-03] MEDS ORDERED: Sucralfate 1 GM TAB ONE (14:11)
== END 2022-08-03 14:04 | disposition home or self-care (01) ==
LOC: NAV ERS 10:44
DX: R10.10 Upper abdominal pain, unspecified (principal); G89.29 Other chronic pain; F17.210 Nicotine dependence, cigarettes, uncomplicated
CPT/HCPCS: 71046; 80053; 81003; 81015; 81025; 83690; 85025; 96372; 96374; 96375; C9113; J1885; J2270; J2405

== ENCOUNTER 2022-08-23 18:04 | Emergency (ER) | payer OTHER | END 2022-08-23 18:49 | disposition home or self-care (01) | LOC: NAV ERS 18:04 | DX: S33.8XXA Sprain of other parts of lumbar spine and pelvis, initial encounter (principal); S46.911A Strain of unspecified muscle, fascia and tendon at shoulder and upper arm level, right arm, initial encounter; W01.0XXA Fall on same level from slipping, tripping and stumbling without subsequent striking against object, initial encounter | CPT/HCPCS: 99283 ==

== ENCOUNTER 2023-01-15 12:18 | Emergency (ER) | payer OTHER, BC ==
[2023-01-15] MEDS ORDERED: Sodium Chloride 0.9% 1,000 ML ONE (12:46)
[2023-01-15] MEDS ORDERED: Ondansetron PF 4 MG/2 ML Vial ONE (12:46)
[2023-01-15] MEDS ORDERED: Morphine 4 MG/ML VIAL ONE (12:46)
[2023-01-15] MEDS ORDERED: Pantoprazole 40 MG VIAL ONE (12:46)
[2023-01-15 13:16] LABS: #Basophils 0.1 thou/uL (0.0-0.2); #Lymphocytes 2.3 thou/uL (1.20-3.40); #Monocytes 0.4 thou/uL (0.11-0.59); #Neutrophils 4.9 thou/uL (1.40-6.50); %Basophils 1.9 % (0.0-1.0); %Eosinophils 0.4 % (0.0-10.0); %Lymphocytes 29.7 % (21.0-51.0); %Monocytes 5.3 % (0.0-10.0); %Neutrophils 62.7 % (42.0-75.0); Mean Corpuscular Hemoglobin 31.7 pg (27.0-31.0); Mean Corpuscular Volume 96.1 fl (78.0-98.0); Mean Platelet Volume 6.9 fL (7.4-10.4); Platelet Count 287 10x3/uL (130-400); RBC Distribution Width 12.4 % (11.5-14.5); Red Blood Cell (RBC) Count 4.41 mill/uL (4.20-5.40); White Blood Cell (WBC) Count 7.9 10x3/uL (4.8-10.8)
[2023-01-15 13:32] LABS: ALT (SGPT) 19 U/L (8-55); AST (SGOT) 16 U/L (5-34); Albumin 4.1 g/dL (3.5-5.0); Alkaline Phosphatase 80 U/L (40-110); Anion Gap 18 mmol/L (10-20); BUN (Urea Nitrogen) 13 mg/dL (7.0-18.7); Bilirubin, Total 0.6 mg/dL (0.2-1.2); Calc. Creatinine Clearance 0 mL/min (70-130); Carbon Dioxide 20 mmol/L (22-29); Chloride 108 mmol/L (98-107); Estimated GFR 98; Glucose 92 mg/dL (70-105); Lipase 16 U/L (8-78); Potassium 3.6 mmol/L (3.5-5.1); Protein, Total 7.1 g/dL (6.0-8.3); Sodium 142 mmol/L (136-145)
[2023-01-15 13:43] LABS: Bilirubin Small (Negative); Blood, Urine Moderate (Negative); Clarity Clear (Clear); Glucose, Urine (Dipstick) Negative (Negative); Ketone, Urine Trace mg/dL (Negative); Leukocyte Trace (Negative); Nitrite Negative (Negative); Protein, Urine (Dipstick) Negative (Neg-Trace); Specific Gravity, Urine 1.025 (1.005-1.030); Urobilinogen 0.2 mg/dL (Less than 2)
[2023-01-15 13:51] LABS: Bacteria/HPF 1+ HPF (None Seen)
== END 2023-01-15 14:29 | disposition home or self-care (01) ==
LOC: NAV ERS 12:18
DX: R19.7 Diarrhea, unspecified (principal); N39.0 Urinary tract infection, site not specified; R11.2 Nausea with vomiting, unspecified; G89.29 Other chronic pain; R10.84 Generalized abdominal pain; F17.210 Nicotine dependence, cigarettes, uncomplicated; Z79.899 Other long term (current) drug therapy
CPT/HCPCS: 36415; 80053; 81003; 81015; 82274; 83690; 85025; 87086; 96361; 96374; 96375; C9113; J2270; J2405; J7050

== ENCOUNTER 2023-04-27 08:50 | Emergency (ER) | payer BC, OTHER, SELFPAY ==
[2023-04-27] MEDS ORDERED: Iopamidol 370 76% 100 ML VIAL ONE (09:00)
[2023-04-27] MEDS ORDERED: Ondansetron PF 4 MG/2 ML Vial ONE ×2 (09:09→12:02)
[2023-04-27] MEDS ORDERED: Morphine 4 MG/ML VIAL ONE (09:09)
[2023-04-27 09:50] LABS: #Basophils 0.1 thou/uL (0.0-0.2); #Lymphocytes 2.2 thou/uL (1.20-3.40); #Monocytes 0.3 thou/uL (0.11-0.59); #Neutrophils 2.8 thou/uL (1.40-6.50); %Basophils 2.3 % (0.0-1.0); %Eosinophils 0.8 % (0.0-10.0); %Lymphocytes 39.7 % (21.0-51.0); %Monocytes 6.2 % (0.0-10.0); %Neutrophils 51.1 % (42.0-75.0); Hemoglobin 13.5 g/dL (12.0-16.0); Mean Corpuscular HGB CONC 32.7 g/dL (32.0-36.0); Mean Corpuscular Volume 94.6 fl (78.0-98.0); Mean Platelet Volume 6.1 fL (7.4-10.4); Platelet Count 274 10x3/uL (130-400); RBC Distribution Width 11.5 % (11.5-14.5); Red Blood Cell (RBC) Count 4.35 mill/uL (4.20-5.40); White Blood Cell (WBC) Count 5.4 10x3/uL (4.8-10.8)
[2023-04-27 10:03] LABS: ALT (SGPT) 17 U/L (8-55); AST (SGOT) 15 U/L (5-34); Albumin 4.1 g/dL (3.5-5.0); Alkaline Phosphatase 69 U/L (40-110); Anion Gap 16 mmol/L (10-20); BUN (Urea Nitrogen) 12 mg/dL (7.0-18.7); Bilirubin, Total 0.6 mg/dL (0.2-1.2); Calc. Creatinine Clearance 0 mL/min (70-130); Calcium 9.4 mg/dL (7.8-10.44); Carbon Dioxide 21 mmol/L (22-29); Chloride 108 mmol/L (98-107); Estimated GFR 89; Globulin 3.1 g/dL (2.4-3.5); Glucose 93 mg/dL (70-105); Lipase 12 U/L (8-78); Potassium 3.8 mmol/L (3.5-5.1); Protein, Total 7.2 g/dL (6.0-8.3); Sodium 141 mmol/L (136-145)
[2023-04-27 10:11] LABS: Bilirubin Moderate (Negative); Blood, Urine Moderate (Negative); Clarity Clear (Clear); Glucose, Urine (Dipstick) Negative (Negative); Ketone, Urine 40 mg/dL (Negative); Leukocyte Negative (Negative); Nitrite Negative (Negative); Protein, Urine (Dipstick) 30 mg/dL (Neg-Trace); Urobilinogen 0.2 mg/dL (Less than 2)
[2023-04-27] MEDS ORDERED: Sodium Chloride 0.9% 1,000 ML ONE (10:12)
[2023-04-27 10:16] LABS: Specific Gravity, Urine 1.034 (1.002-1.036)
[2023-04-27 10:17] LABS: CAUTI Indications for Culture Dysuria,urgency,freq; WBC/HPF 0-3 HPF (0-3)
[2023-04-27 10:19] LABS: Mucous/LPF 1+ LPF (<2+); Urine Culture Reflex No No
[2023-04-27 10:20] LABS: Amphetamine Not Detected (NotDetected); Barbiturates Screen Not Detected (NotDetected); Benzodiazepine Screen Not Detected (NotDetected); Cocaine Metabolite Screen Not Detected (NotDetected); Methadone Not Detected (NotDetected); Methamphetamine Not Detected (NotDetected); Opiate Screen Detected (NotDetected); Oxycodone Screen Not Detected (NotDetected); Phencyclidine (PCP) Not Detected (NotDetected); THC/Cannabinoid Screen Not Detected (NotDetected); Tricyclic Screen Not Detected (NotDetected)
[2023-04-27] MEDS ORDERED: Lidocaine Viscous Sol 2% 15 ml UD Cup ONE (11:43)
[2023-04-27] MEDS ORDERED: Mag-Al Plus 1200 MG/1200 MG/120 MG/30 ML UDCUP ONE (11:43)
== END 2023-04-27 12:20 | disposition home or self-care (01) ==
LOC: NAV ERS 08:50
DX: R10.9 Unspecified abdominal pain (principal)
CPT/HCPCS: 74177; 80053; 80306; 81001; 83690; 85025; 96361; 96374; 96375; 96376; J2270; J2405; J7050; Q9967

== ENCOUNTER 2025-08-29 11:05 | Emergency (ER) | payer OTHER ==
[~2025-08-29 11:05] MED LIST changes: -Sucralfate 1 GM TAB ONE
[2025-08-29] MEDS ORDERED: Ondansetron PF 4 MG/2 ML Vial ONE (11:40)
[2025-08-29 11:51] LABS: #Basophils 0.4 thou/uL (0.0-0.2); #Eosinophils 0.2 thou/uL (0.0-0.7); #Lymphocytes 3.4 thou/uL (1.20-3.40); #Monocytes 0.8 thou/uL (0.11-0.59); #Neutrophils 4.2 thou/uL (1.40-6.50); %Basophils 4.6 % (0.0-1.0); %Eosinophils 2.4 % (0.0-10.0); %Lymphocytes 37.7 % (21.0-51.0); %Monocytes 9.0 % (0.0-10.0); %Neutrophils 46.3 % (42.0-75.0); Hematocrit 35.5 % (36.0-47.0); Hemoglobin 12.6 g/dL (12.0-16.0); Mean Corpuscular Hemoglobin 31.9 pg (27.0-31.0); Mean Corpuscular Volume 90.1 fl (78.0-98.0); Platelet Count 270 10x3/uL (130-400); Red Blood Cell (RBC) Count 3.94 mill/uL (4.20-5.40); White Blood Cell (WBC) Count 9.0 10x3/uL (4.8-10.8)
[2025-08-29 12:04] LABS: ALT (SGPT) 13 U/L (Less than 34); AST (SGOT) 22 U/L (11-34); Albumin 3.7 g/dL (3.1-4.5); Alkaline Phosphatase 75 U/L (40-110); Anion Gap 13 mmol/L (10-20); BUN (Urea Nitrogen) 10 mg/dL (7.0-18.7); Bilirubin, Total 0.3 mg/dL (0.3-1.2); Calc. Creatinine Clearance 0 mL/min (70-130); Calcium 9.0 mg/dL (7.8-10.44); Carbon Dioxide 27 mmol/L (22-29); Chloride 103 mmol/L (98-107); Globulin 3.3 g/dL (2.4-3.5); Glucose 98 mg/dL (70-105); Potassium 3.5 mmol/L (3.5-5.1); Sodium 139 mmol/L (136-145)
[2025-08-29 12:54] LABS: Glucose, Urine (Dipstick) Negative (Negative); Leukocyte Negative (Negative); Protein, Urine (Dipstick) Negative (Neg-Trace); Specific Gravity, Urine 1.025 (1.005-1.030)
[2025-08-29 12:59] LABS: CAUTI Indications for Culture Pelvic or flank pain; Urine Culture Reflex No No; WBC/HPF None Seen HPF (0-3)
== END 2025-08-29 21:11 | disposition short-term general hospital (02) ==
LOC: NAV ERS 11:05
DX: N28.0 Ischemia and infarction of kidney (principal); F17.210 Nicotine dependence, cigarettes, uncomplicated; F43.10 Post-traumatic stress disorder, unspecified
CPT/HCPCS: 71275; 74174; 74177; 80053; 81001; 85025; 96374; 96375; 96376; J2060; J2270; J2405; J7030; Q9967